=== PATIENT | male | born 1975 | race Caucasian/White ===

== ENCOUNTER 2020-07-30 19:42 | Emergency (ER) | payer OTHER ==
[2020-07-30 19:59] VITALS: BP 128/81
[2020-07-30] MEDS ORDERED: BUFFERED LIDOCAINE 10 ML SYRINGE SUBQ STA (20:27)
[2020-07-30] MEDS ORDERED: BACITRACIN ZINC OINT 1 PACKET TOP STA (20:37)
--- NOTE | 2020-07-30 20:51 | ED Physician Documentation ---
History of Present Illness - Stated complaint Stated Complaint: HEAD LAC - Chief complaint Chief Complaint: Laceration - History obtained from History obtained from: Patient - History of Present Illness Timing: Prior to arrival - Additonal information Additional information: 44 year old male here with a scalp laceration sustained when he hit his head accidentally with a parcel post carrier. no LOC. bleeding controlled. denies pertinent pmh. tetanus is UTD Review of Systems Constitutional: reports: Reviewed and negative Eyes: reports: Reviewed and negative Ears: reports: Reviewed and negative Cardiac: reports: Reviewed and negative Respiratory: reports: Reviewed and negative : reports: Reviewed and negative Skin: reports: Laceration (s) (scalp) Musculoskeletal: reports: Reviewed and negative Neurologic: reports: Reviewed and negative PD PAST MEDICAL HISTORY - Past Medical History Past Medical History: Yes Cardiovascular: None Respiratory: None Neuro: None Endocrine/Autoimmune: None GI: None : Other HEENT: None Psych: None Musculoskeletal: Other Derm: None Other Past Medical History: CRAMPS TO LEGS.... - Past Surgical History Past Surgical History: No - Allergies Allergies/Adverse Reactions: Allergies Allergy/AdvReac Type Severity Reaction Status Date / Time No Known Drug Allergies Allergy Verified 07/30/20 19:56 - Social History Does the pt smoke?: No Smoking Status: Never smoker Does the pt drink ETOH?: Yes Does the pt have substance abuse?: No - Immunizations Immunizations are current?: Yes - POLST Patient has POLST: No PD ED PE NORMAL - General General: Alert and oriented X 3, No acute distress, Well developed/nourished - HEENT HEENT: PERRL, EOMI, Ears normal, Moist mucous membranes, Pharynx benign, Dentition benign, Other (Negative for raccoon eyes or hayes sign) - Neck Neck: Supple, no meningeal sign, No adenopathy - Cardiac Cardiac: RRR, No murmur - Respiratory Respiratory: No respiratory distress, Clear bilaterally - Abdomen Abdomen: Normal bowel sounds, Non tender, Non distended - Derm Derm: Normal color, Warm and dry, No rash, Other (4 cm v shaped laceration top pf scalp. No galea seen) - Extremities Extremities: No deformity, No tenderness to palpate, Normal ROM s pain - Neuro Neuro: Alert and oriented X 3 Eye Opening: Spontaneous Motor: Obeys Commands Verbal: Oriented GCS Score: 15 Results - Vitals Vitals: Vital Signs - 24 hr 07/30/20 07/30/20 19:51 20:02 Temperature 37 C Heart Rate 68 Respiratory 18 17 Rate Blood Pressure 128/81 H O2 Saturation 98 Oxygen O2 Source Room air Procedures - Laceration (location) scalp Length in cm: 4 Wound type: Irregular, Clean Neurovascular status: Sensory intact, Motor intact Tendon involvement: Tendon intact Anesthesia: LET Wound Preparation: Chlorhexadine, Irrigated copiously NS Skin layer closure: Sheryl (5 sheryl placed to close scalp wound) Other: Patient tolerated well, No complications, Neurovascular intact, Dressing applied, Tetanus UTD Complexity: Simple PD MEDICAL DECISION MAKING - ED course Complexity details: considered differential, d/w patient ED course: 44-year-old male here with a V shaped laceration to the top of his scalp/head after accidentally hitting himself with a parcel post carrier. He had no loss of consciousness and is neurologically intact. Denies any headache. The laceration was closed with 5 sheryl. Tetanus is up-to-date. Emergent return precautions discussed. We also discussed postconcussive injury though at this time patient denies any headache and appears well Departure - Departure Disposition: 01 Home, Self Care Clinical Impression: Scalp laceration Qualifiers: Encounter type: initial encounter Qualified Code(s): S01.01XA - Laceration without foreign body of scalp, initial encounter Condition: Stable Record reviewed to determine appropriate education?: Yes Instructions: ED Laceration All Comments: Your sheryl should be removed in 5 to 7 days. It is okay to shower normally. Please wash the laceration with warm soap and water daily. Apply a thin layer of antibiotic ointment over the wound. Return here if you develop fevers, have increased pain or milky drainage from the wound or have uncontrolled vomiting, or a suddenly severe headache.
== END 2020-07-30 21:04 | disposition home or self-care (01) ==
LOC: ED 19:42
DX: S01.01XA Laceration without foreign body of scalp, initial encounter (principal); W22.09XA Striking against other stationary object, initial encounter
CPT/HCPCS: 12002; 99281; 99282; A9270

== ENCOUNTER 2020-10-08 12:38 | Emergency (ER) | payer OTHER ==
--- NOTE | 2020-10-08 13:13 | ED Physician Documentation ---
History of Present Illness - Stated complaint Stated Complaint: FINGER LAC - Chief complaint Chief Complaint: Laceration - History obtained from History obtained from: Patient - Additonal information Additional information: Pt accidentally cut his right index finger on a piece of sheet metal. He has full movement, sensation. 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 Reports his td is utd (). Review of Systems Ten Systems: 10 systems reviewed and negative PD PAST MEDICAL HISTORY - Past Medical History Cardiovascular: None Respiratory: None Neuro: None Endocrine/Autoimmune: None GI: None : Other HEENT: None Psych: None Musculoskeletal: Other Derm: None - Past Surgical History Past Surgical History: No - Allergies Allergies/Adverse Reactions: Allergies Allergy/AdvReac Type Severity Reaction Status Date / Time No Known Drug Allergies Allergy Verified 10/08/20 12:43 - Social History Does the pt smoke?: No Smoking Status: Never smoker Does the pt drink ETOH?: Yes Does the pt have substance abuse?: No - Immunizations Immunizations are current?: Yes - POLST Patient has POLST: No PD ED PE NORMAL - Vitals Vital signs reviewed: Yes - General General: Alert and oriented X 3, No acute distress, Well developed/nourished - Derm Derm: Normal color, Warm and dry, No rash, Other (2cm laceration dorsum of the right index finger just below the MIP) - Extremities Extremities: No deformity, No tenderness to palpate, Normal ROM s pain, No edema, No calf tenderness / cord - Neuro Neuro: Alert and oriented X 3 Eye Opening: Spontaneous Motor: Obeys Commands Verbal: Oriented GCS Score: 15 - Psych Psych: Normal mood, Normal affect Results - Vitals Vitals: Vital Signs - 24 hr 10/08/20 12:43 Temperature 36.6 C Heart Rate 64 Respiratory 18 Rate Blood Pressure 153/78 H O2 Saturation 100 Oxygen O2 Source Room air Procedures - Laceration (location) Finger Length in cm: 2 Wound type: Linear Neurovascular status: Sensory intact, Motor intact, Vascular intact Tendon involvement: Tendon intact Anesthesia: Lidocaine 1% Wound Preparation: Hibiclens Skin layer closure: Nylon, Sutures - enter # (4) Other: Patient tolerated well Complexity: Simple PD MEDICAL DECISION MAKING - ED course Complexity details: d/w patient ED course: Pt sustained small lac to right index finger. The finger was cleaned and repaired with 4 #4.0 nylon sutures. Dressing placed. Home wound care instructions and return precautions reviewed. Pt stated he was utd on td. Departure - Departure Disposition: 01 Home, Self Care Clinical Impression: Laceration Finger laceration Qualifiers: Encounter type: initial encounter Finger: index finger Damage to nail status: without damage Foreign body presence: without foreign body Laterality: right Qualified Code(s): S61.210A - Laceration without foreign body of right index finger without damage to nail, initial encounter Condition: Good Instructions: ED Laceration Hand Comments: Keep wound clean with soap and water but do not soak for prolonged periods. If there is redness/swelling/drainage or otherwise worsening symptoms, return to the ER. Sutures can be removed in 7 days.
[2020-10-08 13:25] VITALS: BP 106/69
== END 2020-10-08 13:45 | disposition home or self-care (01) ==
LOC: ED 12:38
DX: S61.210A Laceration without foreign body of right index finger without damage to nail, initial encounter (principal); W26.8XXA Contact with other sharp object(s), not elsewhere classified, initial encounter
CPT/HCPCS: 12001; 99281; 99282